=== PATIENT | female | born 1995 | race African-American/Black ===

== ENCOUNTER 2016-08-31 15:30 | Emergency (ER) | payer BC ==
[2016-08-31] MEDS ORDERED: DEXAMETHASONE LIQUID 0.5 MG/5 ML 240 ML BULK BOTTLE PO ONE (15:36)
[2016-08-31] MEDS ORDERED: IBUPROFEN 600 MG TABLET (FP) PO ONE ×2 (15:36→15:45)
--- NOTE | 2016-08-31 15:43 | PDOC ---
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 HEAD, EYES, EARS, NOSE AND THROAT: Yes: Throat pain GENERAL: The patient is in no acute distress. ENT: Left tonsillar enlargement, (+) exudate, no LAD NECK: Normal range of motion, supple without lymphadenopathy 08/31/16 18:22 Past History - Past Medical History Allergies/Adverse Reactions: Allergies Allergy/AdvReac Type Severity Reaction Status Date / Time No Known Allergies Allergy Verified 08/31/16 15:32 Home Medications: Ambulatory Orders Amoxicillin - [Amoxicillin 500mg Capsule -] 500 mg PO BID #20 capsule 08/31/16 Medical Decision Making - Medical Decision Making 08/31/16 15:54 Will do rapid strep Will give motrin and Decadron Will re assess 08/31/16 16:38 Rapid strep negative Pt improved 08/31/16 16:40 Given the appearance of pt throat, Will treat Will give Amoxicillin 500 mg po bID x 10 days Return to the ER for any other concerns or complaints (particularly vocal changes, drooling, difficulty, inability to swallow) *DC/Admit/Observation/Transfer Diagnosis at time of Disposition: Pharyngitis Qualifiers: Pharyngitis/tonsillitis etiology: unspecified etiology Qualified Code(s): J02.9 - Acute pharyngitis, unspecified - Discharge Dispostion Disposition: HOME Condition at time of disposition: Stable Admit: No - Prescriptions Prescriptions: Amoxicillin - [Amoxicillin 500mg Capsule -] 500 mg PO BID #20 capsule - Patient Instructions Printed Discharge Instructions: DI for Pharyngitis/Tonsillopharyngitis -- Adult Additional Instructions: Annette Thank you for coming in to the ER today Please take motrin for throat pain Please take antibiotics as prescribed YOU MUST follow up with your primary care physician within 1 week Return to the ER for any other concerns or complaints - Post Discharge Activity Work/School Note: Back to Work, Back to School
[2016-08-31] MEDS ORDERED: DEXAMETHASONE SOD PHOSPHATE 10 MG/1 ML VIAL ONE (15:46)
[2016-08-31 15:56] VITALS: BP 129/67; PULSE 78; TEMP 98.3; BMI 19.5
== END 2016-08-31 16:58 | disposition home or self-care (01) ==
LOC: FER 15:30
DX: J02.9 Acute pharyngitis, unspecified (principal)
CPT/HCPCS: 87070; 87077; 87430; 99282-25